=== PATIENT | female | born 1950 | race Caucasian/White ===

== ENCOUNTER 2020-12-01 11:42 | Emergency (ER) | payer MEDICARE, SELFPAY ==
--- NOTE | ~2020-12-01 | XR_ITS ---
EXAMINATION: XR knee LT min 4V DATE: 12/01/2020 12:37 INDICATION: Left knee pain. Fall. TECHNIQUE: 4 views of left knee were obtained. COMPARISON: None. FINDINGS: Bone alignment is normal. No fracture. There is mild osteoarthritis of medial and patellofe moral compartments characterized by tiny marginal osteophytes. No joint space narrowing. No knee join t effusion. IMPRESSION: 1. Mild left knee osteoarthritis. Reviewed, dictated and finalized at location A.
[2020-12-01 11:56] VITALS: BP 141/68; PULSE 63; RESP 18; TEMP 36.1; O2SAT 100
--- NOTE | 2020-12-01 13:02 | ED.LOWEXIN ---
HPI - Extremity Injury (Lower) General Chief Complaint: Extremity Injury, Lower Stated Complaint: Left Knee Pain Source: patient and RN notes reviewed Limitations: no limitations History of Present Illness HPI Narrative: The patient, previously mostly healthy on few meds, presents with left knee discomfort. Patient states that yesterday she slipped and fell onto hospital as she was pulled by her dog resulting in in a bruise to her kneecap. She also abraded her left elbow; symptoms are mild, worse with motion, better with rest or elevation. No bleeding, deformity and tetanus is current Related Data Home Medications Medication Instructions Recorded Confirmed lorazepam 12/01/20 12/01/20 metoprolol succinate 12/01/20 omeprazole magnesium [Acid Partner 12/01/20 (omeprazole)] rizatriptan mg 12/01/20 Allergies Allergy/AdvReac Type Severity Reaction Status Date / Time No Known Allergies Allergy Verified 12/01/20 12:16 Review of Systems Review of Systems: General/Constitutional: No weight loss,fever Eyes: N0: Redness,discharge Ears/Nose/Throat: No: Epistaxis,ear discharge Respiratory: Denies: Hemoptysis Gastrointestinal: No Vomiting, Bleeding-rectal Skin: No Lumps, eruption Neurologic: No Focal Weakness,Sz Hematologic: Denies: Petechiae/Purpura Psychiatric: No: Suicida ideationl All Other Systems: Reviewed and Negative PMFSH Comments At time of signature, agree with nursing past medical, surgical, social and family history. There is no relevant family history pertinent to the presenting complaint Exam Narrative: General Appearance: Well appearing, Well nourished, No distress Conjunctiva clear Mouth/Throat: Normal appearing, Normal lips, Supple Respiratory: Airway patent, No respiratory distress MS-knee: Normal strength (mostly intact, limited flexion/extension by pain), Tenderness (patellar, with mild decreased ROM), Scant swelling (anteriorly), Other (no anterior drawer, no collateral laxity; unable to do Pat, provocative testing Skin: Warm, Dry, Normal color except for abraded left elbow Neurological: A&O x3, Speech clear, CN II-XII intact Psychiatric: Normal mood, Normal affect Course Course Emergency Course: Films visualized, interpreted by radiologist, agree, normal see report Vital Signs Vital signs: Vital Signs Temperature 96.9 F L 12/01/20 11:56 Pulse Rate 63 12/01/20 11:56 Respiratory Rate 18 12/01/20 11:56 Blood Pressure 141/68 H 12/01/20 11:56 Pulse Oximetry 100 12/01/20 11:56 Temperature 96.9 F L 12/01/20 11:56 Pulse Rate 63 12/01/20 11:56 Respiratory Rate 18 12/01/20 11:56 Blood Pressure 141/68 H 12/01/20 11:56 Pulse Oximetry 100 12/01/20 11:56 Discharge Plan Discharge Clinical Impression: Contusion of knee, left Qualifiers: Encounter type: initial encounter Qualified Code(s): S80.02XA - Contusion of left knee, initial encounter Abrasion of elbow, left Qualifiers: Encounter type: initial encounter Qualified Code(s): S50.312A - Abrasion of left elbow, initial encounter Patient Disposition: Home, Self-Care Condition: Stable Instructions: Knee Sprain (ED), Abrasion (ED) Additional Instructions: See your prior orthopedist, also try provided therapy exercise Prescriptions: New tramadol 50 mg tablet 50 - 75 mg PO TID PRN (Reason: pain) Qty: 30 RF: 0 acetaminophen-codeine 120-12 mg/5 mL solution 5 - 7.5 ml PO HS PRN (Reason: pain) Qty: 118 RF: 0 prednisone 20 mg tablet 40 mg PO DAILY Qty: 6 RF: 0 mupirocin 2 % ointment 1 applic TOPICAL TID Qty: 30 RF: 0 No Action rizatriptan 10 mg tablet RF: 0 lorazepam 1 mg tablet RF: 0 omeprazole magnesium [Acid Partner (omeprazole)] 20 mg Capsule,Delayed Release(Dr/Ec) RF: 0 metoprolol succinate RF: 0 Follow-up/Referrals: PHYSICIAN NOT ON STAFF,NONSTAFF [Primary Care Provider] - Stand Alone Forms: Wo
== END 2020-12-01 13:22 | disposition home or self-care (01) ==
PROVIDERS: Emergency Provider Emergency Medicine
DX: S80.02XA Contusion of left knee, initial encounter (principal); S50.312A Abrasion of left elbow, initial encounter; W01.0XXA Fall on same level from slipping, tripping and stumbling without subsequent striking against object, initial encounter; Y93.K1 Activity, walking an animal; I10 Essential (primary) hypertension; M19.90 Unspecified osteoarthritis, unspecified site; K21.9 Gastro-esophageal reflux disease without esophagitis
CPT/HCPCS: 73564; 99203; G0463